=== PATIENT | male | born 1940 | race Caucasian/White ===

== ENCOUNTER 2017-10-21 22:39 | Emergency (ER) | payer MEDICARE ==
[~2017-10-21] VITALS: Ht 167.6 cm; Wt 106.3 kg
[~2017-10-21 22:39] MED LIST: ASPI81 PO; ATOR40TA49 PO; DOCU240C PO; MAGN30S PO; METO50 PO; MULT-65 PO; NEXI40CA PO; NORV5TAB PO; ULTR50TA PO
[2017-10-21 22:43] VITALS: BP 173/84; PULSE 78; RESP 18; TEMP 98.2; O2SAT 95
[2017-10-21] MEDS ORDERED: ASPI-183 PO (23:06)
[2017-10-21] MEDS ORDERED: VITA100021 SL (23:06)
[2017-10-21] MEDS ORDERED: ATOR80TA45 PO (23:06)
[2017-10-21] MEDS ORDERED: MULTTAB67 PO (23:06)
[2017-10-21] MEDS ORDERED: NIAC500T5 PO (23:06)
[2017-10-21] MEDS ORDERED: TRAM50TA PO (23:06)
--- NOTE | 2017-10-21 23:38 | PD ---
HPI Chief Complaint: Fall Time Seen by Provider: 23:33 Travel History International Travel<30 days: No Contact w/Intl Traveler<30days: No Traveled to known affect area: No History of Present Illness HPI The patient is a 77-year-old male that fell at 10:20 PM today at [facility]. He has some abrasions on his left arm and he has shoulder pain on the left anterior shoulder. He has full range of motion of the left shoulder but with pain. He has not had any surgeries to his left shoulder. PFSH Past Medical History Hx Anticoagulant Therapy: Yes (ASPIRIN) Arthritis: Yes Cancer: No Cardiovascular Problems: Yes (CABGX2 5 YEARS AFO) High Cholesterol: Yes Chest Pain: Yes Coronary Artery Disease: Yes Diabetes: No Diminished Hearing: No Endocrine: No GERD: Yes Hypertension: Yes Immune Disorder: No Thyroid Disease: No Tetanus Vaccination: > 5 Years Influenza Vaccination: Yes Past Surgical History Cardiac Surgery: Yes (CABG X2) Oral Surgery: Yes (TONSCILS) Thoracic Surgery: Yes (PUNCTURED LUNG) Tonsillectomy: Yes Social History Alcohol Use: Yes (OCC) Tobacco Use: No (QUIT 1969) Substance Use: No Allergies-Medications (Allergen,Severity, Reaction): Coded Allergies: penicillin G (Unverified Allergy, Severe, 10/21/17) Reported Meds & Prescriptions Reported Meds & Active Scripts Active Reported Vitamin B-12 (Cyanocobalamin) 1,000 Mcg Subl 1,000 Mcg SL DAILY Tramadol (Tramadol HCl) 50 Mg Tab 50 Mg PO Q6H PRN Niacin 500 Mg Tab 500 Mg PO DAILY Multiple Vitamin 1 Tab 1 Tab PO DAILY Atorvastatin (Atorvastatin Calcium) 80 Mg Tab 80 Mg PO HS Aspirin 325 Mg Tab 325 Mg PO DAILY Review of Systems Except as stated in HPI: all other systems reviewed are Neg Physical Exam Narrative GENERAL: Well-nourished, well-developed patient and slight apparent distress with his left shoulder discomfort. His vital signs show blood pressure 173/84 but are otherwise normal. SKIN: Focused skin assessment warm/dry. Multiple superficial abrasions are present on the left arm, particularly left upper arm. HEAD: Normocephalic. EYES: No scleral icterus. No injection or drainage. NECK: Supple, trachea midline. No JVD or lymphadenopathy. CARDIOVASCULAR: Regular rate and rhythm without murmurs, gallops, or rubs. RESPIRATORY: Breath sounds equal bilaterally. No accessory muscle use. GASTROINTESTINAL: Abdomen soft, non-tender, nondistended. MUSCULOSKELETAL: No cyanosis, or edema. There is tenderness without any bony deformity at the junction of the clavicle and scapula. No swelling is noted. The patient has full range of motion with pain of his left shoulder. Good capillary refill and pinprick is present distally. BACK: Nontender without obvious deformity. No CVA tenderness. Data Data Last Documented VS Vital Signs Date Time Temp Pulse Resp B/P (MAP) Pulse Ox O2 Delivery O2 Flow Rate FiO2 10/21/17 22:43 98.2 78 18 173/84 (113) 95 Orders Orders Shoulder, Complete (>2vws) (10/21/17 23:33) Tetanus/Diphtheria Tox Adult (Tetanus/Di (10/21/17 23:45) Wound Care (10/21/17 23:35) MDM Medical Decision Making Medical Screen Exam Complete: Yes Emergency Medical Condition: Yes Medical Record Reviewed: Yes Interpretation(s) The left shoulder shows chronic change but no acute fracture. Differential Diagnosis Fracture left shoulder, AC dislocation, contusion shoulder, rotator cuff tear Narrative Course The patient has a contusion of the left shoulder. No evidence for AC dislocation. There is no evidence on x-ray for fracture and there is clinically no evidence for rotator cuff tear at this time. Diagnosis Primary Impression: Contusion of left shoulder Additional Instructions: Rest the left shoulder. Gradual range of motion exercises are encouraged. Follow-up with Dr. Collins if you have any problems. Med/Other Pt SpecificInfo: No Change to Meds Disposition: 01 DISCHARGE HOME Condition: Stable Martin Almendarez MD Oct 21, 2017 23:38
[2017-10-21] MEDS ORDERED: TETANUS/DIPHTHERIA TOXOID ADULT 0.5 ML VIAL IM ONE (23:45)
--- NOTE | 2017-10-22 00:02 | RADRPT ---
EXAM DATE: 10/21/2017 11:57 PM EDT AGE/SEX: 77 years / Male INDICATIONS: Pain due to fall. CLINICAL DATA: This is the patient's initial encounter. Patient reports that signs and symptoms have been present for 1 day and indicates a pain score of 8/10. MEDICAL/SURGICAL HISTORY: None. CABG. COMPARISON: No prior [place] exams available for comparison. FINDINGS: The glenohumeral and acromioclavicular joints are normally aligned. There are some hypertrophic spurr ing at the inferior medial humeral head. There are small calcifications adjacent to the greater tuber дмитрий likely related to hypertrophic change. No fracture is seen. CONCLUSION: Chronic change as described above. Electronically signed by: Surendra Rogers MD 10/22/2017 12:01 AM EDT
[2017-10-22 00:45] VITALS: BP 157/76; PULSE 82; RESP 16; O2SAT 97
== END 2017-10-22 00:59 | disposition home or self-care (01) ==
LOC: PHED 22:39
DX: S40.012A Contusion of left shoulder, initial encounter (principal); S40.812A Abrasion of left upper arm, initial encounter; W19.XXXA Unspecified fall, initial encounter; Y92.838 Other recreation area as the place of occurrence of the external cause; E78.00 Pure hypercholesterolemia, unspecified; I10 Essential (primary) hypertension; I25.10 Atherosclerotic heart disease of native coronary artery without angina pectoris; K21.9 Gastro-esophageal reflux disease without esophagitis; Z23 Encounter for immunization
CPT/HCPCS: 73030; 90471; 90714